=== PATIENT | male | born 2000 | race Caucasian/White ===

== ENCOUNTER 2023-04-13 08:39 | Emergency (ER) | payer OTHER, SELFPAY ==
[2023-04-13 08:40] VITALS: BP 124/76; PULSE 89; RESP 14; TEMP 37.2; O2SAT 99; BMI 24.4
--- NOTE | 2023-04-13 08:54 | EX.ED.DYSGE1 ---
HPI History of Present Illness Chief Complaint: General Illness Detail of Chief Complaint: Recent viral illness with positive COVID test yesterday Informant: patient Onset/Context/Timing Onset: Days Context: Sudden Onset Timing: Intermittent Quality: Colicky Location: Epigastric Current Severity: Mild Maximum Severity: Moderate Worsened by: Nothing Relieved by: Nothing, has taken ibuprofen without improvement Associated Symptoms Associated Symptoms: COVID-19 infection Narrative Narrative: Patient is a 22-year-old male who does admit to drinking. He denies smoking. He has not felt well for the past couple of days. He had a positive COVID test yesterday. He was seen at the urgent care across the street. He was sent in for imaging of his abdomen. He has had no vomiting, diarrhea or constipation. He has had intermittent fever. He does report aches. He presently denies headache, visual, ocular auditory symptoms. He does have a cough. His cough is nonproductive. He denies shortness of breath or dyspnea on exertion. He denies rash. He denies swelling of his joints. Prior similar symptoms: No Recent Illness/Hospitalization: Yes (COVID-19 infection) PFSH PFS Medical History no medical history Home Medications NK 04/13/23 [History Last Taken Unknown] Allergy/AdvReac Type Severity Reaction Status Date / Time No Known Allergies Allergy Verified 04/13/23 08:40 Social History (Updated 04/13/23 @ 08:[address] Wilmar Phelps MD) Smoking Status: Never smoker alcohol intake: current ROS ROS ED Constitutional Constitutional ED: Reports chills, fever(s) and sweats; Denies weight loss Eyes Eyes: Denies blurry vision, change in vision or diplopia ENT ENT ED: Reports rhinorrhea and sore throat; Denies ear pain Cardiovascular Cardiovascular: Denies chest pain, orthopnea, palpitations, paroxysmal nocturnal dyspnea or racing heartbeat Respiratory/Chest Respiratory/Chest: Reports cough and dyspnea; Denies dyspnea on exertion, orthopnea, paroxysmal nocturnal dyspnea or sputum Gastrointestinal Gastrointestinal: Reports abdominal pain and nausea; Denies constipation, diarrhea, melena or vomiting Genitourinary Genitourinary ED: Denies dysuria, hematuria or urinary frequency Musculoskeletal Musculoskeletal: Denies arthralgias, back pain, myalgias or neck pain Integumentary Denies rash Neurologic Neurologic: Reports weakness; Denies headache(s) Endocrine Endocrinology: Denies cold intolerance or heat intolerance Hematologic/Lymphatic Hematologic/Lymphatic: Reports systems reviewed and no addt'l complaints, except as documented EXAM Physical Exam Const Vital Signs: 04/13/23 08:40 04/13/23 09:05 Temperature 98.9 F Temperature Source Temporal Pulse Rate 89 Respiratory Rate 14 Respiratory Effort Normal Non-Labored Respiratory Pattern Normal Blood Pressure 124/76 H Blood Pressure Mean 92 Pulse Ox 99 Oxygen Delivery Method Room Air Positive well nourished and well developed General Appearance ED: well developed, NAD and pallor; Negative for cyanotic or diaphoretic HEENT Reports moist mucous membranes HEENT Narrative: Head is atraumatic and normocephalic. Ears are normal. Nares are patent. Eyes PERRL and EOMs intact bilaterally General Eye ED: Negative for pale conjunctiva or scleral icterus Neck no lymphadenopathy and supple Chest Wall inspection of chest normal and palpation of chest normal Resp normal respiratory effort and clear to auscultation bilaterally Cardio regular rate, regular rhythm, S1 normal heart sound, S2 normal heart sound and no murmurs GI normal to inspection, nondistended, normoactive bowel sounds, non-distended and no masses; Negative for non-tender or hepatosplenomegaly Palpation: soft and tender epigastric Back/Spine no CVA tenderness Extremity normal to inspection General Extremety ED: Negative for edema or tenderness General Extremity: Negative for edema Neuro oriented x3, CN's II-XII intact bilaterally and no sensory deficits noted Sensorium / Orientation: alert Motor Exam: strength 5/5 throughout Psych mental status grossly normal Skin no rashes or lesions noted, no wounds and skin turgor normal General Skin Exam: pallor; Negative for jaundice MDM MDM MDM Narrative Medical decision making narrative: Patient has symptoms consistent with COVID. Since he has epigastric pain as his complaint and tenderness in the epigastric we will treat with GI cocktail. Suspect this is either gastritis or stress or related to the COVID infection. Since there is no reported black or maroon stool he has no orthostatic symptoms vitals are normal laboratory studies were not obtained. Patient was informed in my opinion he does not eat imaging even though he was told he needed imaging by the practitioner that saw him at the urgent care. Treatment and Re-Evaluation :: Patient was reassessed at 1002. Patient states he had increased pain 50 minutes after was given a GI cocktail. He is still experiencing pain but is not severe. He was reexamined. His only area of discomfort is the epigastrium. Patient was told in my opinion this is from his COVID. He informed me that he did not have the symptoms when he was diagnosed with COVID in the past. Patient was informed that symptoms can be different. I also informed him it is not uncommon for patient to be sent from the urgent care with the expectation of having a CAT scan and we do not do a CAT scan approximately 80-90% of time. More importantly those patients that we do not do CAT scan do not return with any significant pathology. I was informed by patient's nurse at 06/19/2000 that he is now having sweats and hurting all over. He states his abdominal pain is increased. In my opinion this is all due to his COVID-19 infection. In my professional opinion he has a benign abdominal exam. No work-up is needed. Discharge Plan Triage Chief Complaint: General Illness ED Provider: Wilmar Phelps Dx/Rx/DC Orders Clinical Impression: COVID-19 virus infection Instructions: Coronavirus Disease 2019 (COVID-19): Caring for Yourself or Others Prescriptions: No Action NK Primary Care Provider: Care Physician,No Primary Referrals: [facility] [Group of Physicians] - 1 Week if not improving Care Physician,No Primary [Primary Care Provider] - Disposition Disposition: Home, Self Care
[2023-04-13] MEDS: Mag Hydrox/Al Hydrox/Simeth 30 ML UDC PO (09:01)
[2023-04-13] MEDS: Famotidine 200 MG/20 ML MDV 20 MG in 0.9% Normal Saline (Pres. free 8 ML 300 MG IV (11:18)
--- NOTE | 2023-04-13 12:05 | EDS_ITS ---
HPI History of Present Illness Chief Complaint: General Illness PFSH PFSH Medical History no medical history Home Medications NK 04/13/23 [History Last Taken Unknown] Allergy/AdvReac Type Severity Reaction Status Date / Time No Known Allergies Allergy Verified 04/13/23 08:40 Social History (Updated 04/13/23 @ 08:[address] Wilmar Phelps MD) Smoking Status: Never smoker alcohol intake: current EXAM Physical Exam Const Vital Signs: 04/13/23 08:40 04/13/23 09:05 Temperature 98.9 F Temperature Source Temporal Pulse Rate 89 Respiratory Rate 14 Respiratory Effort Normal Non-Labored Respiratory Pattern Normal Blood Pressure 124/76 H Blood Pressure Mean 92 Pulse Ox 99 Oxygen Delivery Method Room Air Discharge Plan Triage Chief Complaint: General Illness ED Provider: Wilmar Phelps Dx/Rx/DC Orders Clinical Impression: COVID-19 virus infection Instructions: Coronavirus Disease 2019 (COVID-19): Caring for Yourself or Others Prescriptions: No Action NK Primary Care Provider: Care Physician,No Primary Referrals: [facility] [Group of Physicians] - 1 Week if not improving Care Physician,No Primary [Primary Care Provider] - Disposition Disposition: Home, Self Care
== END 2023-04-13 12:26 | disposition home or self-care (01) ==
PROVIDERS: Emergency Provider Emergency Medicine; Visit Provider Emergency Medicine
DX: U07.1 COVID-19 (principal)
CPT/HCPCS: 96365; 99283; J3490